=== PATIENT | female | born 1960 | race Two or more races ===

== ENCOUNTER 2018-12-16 06:08 | Day surgery (SDC) | payer OTHER ==
[2018-12-12 11:27] VITALS: BMI 41.5
[2018-12-16] MEDS ORDERED: BUPIVACAINE HCL/PF 2.5 MG/ML - 30 ML VIAL IJ ONE (07:22)
[2018-12-16] MEDS ORDERED: methylPREDNISolone ACET (DEPO) 40 MG/1 ML VIAL ONE (07:22)
[2018-12-16] MEDS ORDERED: MIDAZOLAM HCL 2 MG/2 ML SINGLE DOSE VIAL ONE (07:46)
[2018-12-16] MEDS ORDERED: SUCCINYLCHOLINE CHLORIDE 200 MG/10 ML SYRINGE ONE (07:46)
[2018-12-16] MEDS ORDERED: PROPOFOL 20 ML ONE (07:46)
[2018-12-16] MEDS ORDERED: ceFAZolin SODIUM 1 GM VIAL ONE (08:12)
[2018-12-16] MEDS ORDERED: ONDANSETRON 4 MG/2 ML VIAL ONE (08:12)
[2018-12-16] MEDS ORDERED: DEXAMETHASONE SOD PHOSPHATE 4 MG/1 ML VIAL ONE (08:12)
[2018-12-16] MEDS ORDERED: methylPREDNISolone ACET (DEPO) 40 MG/1 ML VIAL IM ONE ×2 (08:40→08:45)
[2018-12-16] MEDS ORDERED: BUPIVACAINE HCL/PF 0.25% (2.5MG/ML) 10 ML VIAL IJ ONE ×2 (08:40→08:45)
--- NOTE | 2018-12-16 09:20 | PN ---
Progress Note (short form) - Note Progress Note: 50F s/p SARK, partial medial meniscectomy, shaving chondroplasty POD #0. -Pain control. -WBAT RLE. -Percocet, Duexis ordered to patient's pharmacy. -f/u post-op trial of void. -Diet as tolerated. -Keep dressing clean & dry; d/c on Wednesday & place waterproof Band-Aids over incision sites. -Cane vs crutches. -f/u [facility] [place] office 1 week; call for appointment; [phone]. Kapil Schmidt MD (Orthopaedic Surgery).
[2018-12-16 10:18] VITALS: TEMP 97.8
--- NOTE | 2018-12-16 10:55 | OP ---
DATE OF OPERATION: 12/16/2018 SURGEON: Kapil Schmidt MD PREOPERATIVE DIAGNOSIS: Medial meniscal tear, right knee. POSTOPERATIVE DIAGNOSIS: Medial meniscal tear with associated synovitis and tricompartment osteoarthritis worst medial compartment. ANESTHESIA: Spinal with conscious sedation. OPERATION PERFORMED: 1. Arthroscopy, right knee. 2. Shaving chondroplasty, right medial femoral condyle and trochlear groove. 3. Medial compartment synovectomy. 4. Partial medial meniscectomy. OPERATION DETAILS: Patient correctly identified. Brought to the operating room. Right lower extremity was prepped, draped in the routine manner with a Betadine scrub solution, wiped off with alcohol, DuraPrep applied, and a free drape applied. Time-out was called. Imaging was available for intraoperative evaluation. The knee was placed in a knee mason, and in a bloodless field, a standard anterolateral portal just in the soft spot lateral to the patellar ligament of the knee inflexion, the arthroscopic instrumentation was introduced into the knee and an extensive arthroscopic evaluation of the knee performed. The following findings noted: Diffuse synovitis throughout. This was a mild synovitis. The retropatellar surface was well maintained with fibular changes noted but Outerbridge level II only. The trochlear groove was different. It was more extensive where there was no eburnated bone, but I would view this after probing with the elbow of a probe that this was an Outerbridge level III change on the trochlear groove. The medial femoral condyle itself revealed punched out, significant arthritic changes with advanced osteoarthritis noted. A rim osteophyte was noted throughout the entire knee. The intercondylar notch was contracted with osteophyte. The cruciate ligaments appeared normal. The lateral compartment was visualized and found to be well maintained. The meniscus on the lateral side was normal. The meniscus on the medial side had parrot beak tear posteriorly. This flapped into the joint. I made a 2nd portal, used this as a lavage portal and washed out all debris from the knee. I placed a 3.5 shaver, shaved off synovium, which was impinging up against the femoral condyle as well as around the trochlear groove. The shaver was also utilized to trim out the parrot beak tear of the medial meniscus thus completing a partial medial meniscectomy. Some unstable cartilage on the femoral condyle was shaved away. This was a combination of Outerbridge II and III changes. The shaving brought about a smooth articulation as noted. Further 5 L of lavage was performed joints were instilled with Marcaine steroid. The portals were closed with 3-0 Monocryl. Operation did well. No complications. MD MALIA Nielsen/[id number]
--- NOTE | 2018-12-16 11:21 | OP ---
Operative Note - Note: Operative Date: 12/16/18 ( ) Pre-Operative Diagnosis: Internal derangement right knee Operation: Right knee arthroscopy. Partial medial meniscectomy. Shaving chondroplasty Findings: Partial medial meniscus tear Synovitis Chondral flaps Post-Operative Diagnosis: Same as Pre-op Surgeon: Kapil Schmidt Anesthesiologist/[employer]: Luis Greer Anesthesia: General Estimated Blood Loss (mls): 0 Fluid Volume Replaced (mls): 400 (Crystalloid) Operative Report Dictated: Yes
[2018-12-16 12:17] VITALS: BP 122/68; PULSE 66
== END 2018-12-16 11:45 | disposition home or self-care (01) ==
LOC: FASU 06:08
PROVIDERS: ATTEND Orthopaedic Surgery Orthopaedic Surgery of the Spine
PROC: 0SBC4ZZ Excision of Right Knee Joint, Percutaneous Endoscopic Approach (ICD-10-PCS; 2018-12-16)
PROC: 0SBC4ZZ Excision of Right Knee Joint, Percutaneous Endoscopic Approach (ICD-10-PCS; principal; 2018-12-16 08:33)
DX: S83.241A Other tear of medial meniscus, current injury, right knee, initial encounter (principal); M17.11 Unilateral primary osteoarthritis, right knee; M65.9 Synovitis and tenosynovitis, unspecified; X58.XXXA Exposure to other specified factors, initial encounter; Y93.9 Activity, unspecified; Y92.9 Unspecified place or not applicable
CPT/HCPCS: 94760